=== PATIENT | female | born 1970 | race Caucasian/White ===

== ENCOUNTER 2017-11-14 14:47 | Emergency (ER) | payer SELFPAY ==
[2017-11-14] MEDS ORDERED: Aspirin Low Dose CHEW TAB* 81 MG ONE (14:52)
[2017-11-14] MEDS ORDERED: Aspirin Low Dose CHEW TAB* 81 MG PO ONE (14:55)
[2017-11-14] MEDS ORDERED: Nitroglycerin TAB 0.4 MG* 0.4 MG TAB SL ONE ×2 (14:56→15:00)
[2017-11-14] MEDS ORDERED: NS 0.9% 1000 ML* 1,000 ML IV SCH (15:00)
[2017-11-14] MEDS ORDERED: Lidocaine 1% INJ* 10 MG/ML 30 ML SDV ONE (15:30)
[2017-11-14] MEDS ORDERED: Heparin 2 UNITS/ML IVPREMIX* 2,000 ML IV ONE (15:30)
[2017-11-14] MEDS ORDERED: fentaNYL* 50 MCG/ML 2 ML VIAL (100 MCG VIAL) ONE (15:30)
[2017-11-14] MEDS ORDERED: nitroGLYCERIN DRIP* 25,000 MCG/250 ML BTL ONE (15:30)
--- NOTE | 2017-11-14 16:06 | UC ---
Jesus Manuel Elam Natalie, scribed for Kelvin Louie MD on 11/14/17 at 1601 . Cardiac HPI - HPI Summary HPI Summary: The pt is a 47 y/o F presenting to [facility] c/o chest pain starting a few hours ago. The pt has treated the pain with nothing OPERATIONS SUPPORT REPRESENTATIVE. She has a hx of [place] ten years and has had three stents placed afterwards. She has not been taking any medication for her condition. While in [facility], EKG shows STEMI. - History of Current Complaint Stated Complaint: CHEST PAIN Time Seen by Provider: 11/14/17 14:54 Hx Obtained From: Patient Onset/Duration: Sudden Onset, Lasting Hours - started a few hours ago, Still Present Initial Severity: Moderate Current Severity: Severe Associated Signs & Symptoms: Positive: Chest Pain - Allergy/Home Medications Allergies/Adverse Reactions: Allergies Allergy/AdvReac Type Severity Reaction Status Date / Time No Known Allergies Allergy Verified 11/14/17 15:40 PMH/Surg Hx/FS Hx/Imm Hx Previously Healthy: No Cardiovascular History: Myocardial Infarction Review of Systems Constitutional: Other - negative: fever Cardiovascular: Chest Pain All Other Systems Reviewed And Are Negative: Yes Physical Exam Triage Information Reviewed: Yes Appearance: Ill-Appearing, Pain Distress - mild, Other: - anxious Vital Signs Reviewed: Yes Eyes: Positive: Other: - EOMI, CANDY ENT: Positive: Normal ENT inspection Neck: Positive: Supple, Nontender Respiratory: Positive: Other: - CTA, breath sounds present Cardiovascular: Positive: Tachycardia Abdomen Description: Positive: Nontender, Soft Bowel Sounds: Positive: Present Musculoskeletal Exam: Normal Musculoskeletal: Positive: Strength Intact, ROM Intact Neurological: Positive: Other: - normal, sensory/motor intact, A&O x3 Psychological: Positive: Other: - affect/mood appropriate Skin: Positive: Other - warm, color reflects adequate perfusion, dry Diagnostics - EKG Cardiac Rate: Tachycardia Cardiac Rhythm: Sinus: New - 116 BPM Ectopy: None ST Segment: Non-Specific - ST elevation in anterolateral leads - Assessment/Plan Course Of Treatment: Medications reviewed. Allergies noted. BP noted and advised to follow up with PCP. PATIENT GIVEN ASA 324MG PO, SL NTG AND IV FLUIDS. ED NOTIFIED. PATIENT WENT TO ED BY AMBULANCE. - Clinical Impression Provider Diagnoses: stemi Discharge - Sign-Out/Discharge Documenting (check all that apply): Discharge - Discharge Plan Condition: Guarded Disposition: TRANS HIGHER LVL OF CARE FAC Discharge Disposition Comment: The pt will be transferred to [facility]. Referrals: No Primary Care Phys,NOPCP [Primary Care Provider] - - Billing Disposition and Condition Condition: GUARDED Disposition: EMTALA The documentation as recorded by the Jesus Manuel franco Natalie accurately reflects the service I personally performed and the decisions made by me, Kelvin Louie MD.
== END 2017-11-14 15:10 | disposition short-term general hospital (02) ==
LOC: UCEAST 14:47
DX: I21.3 ST elevation (STEMI) myocardial infarction of unspecified site (principal); I25.2 Old myocardial infarction; Z95.5 Presence of coronary angioplasty implant and graft; R00.0 Tachycardia, unspecified
CPT/HCPCS: 93005; 96360; 99204; A9270-GY; G0463; J1644; J3010

== ENCOUNTER 2017-11-14 15:24 | Inpatient (IN) | payer SELFPAY ==
[2017-11-14] MEDS ORDERED: Midazolam* 1 MG/ML 10 ML VIAL (10 MG) ONE (15:31)
[2017-11-14] MEDS ORDERED: nitroGLYCERIN DRIP* 25,000 MCG/250 ML BTL ONE (15:31)
[2017-11-14] MEDS ORDERED: Iohexol 350 (CONTRAST) 200 ML MDV IV ONE ×2 (15:35→16:20)
[2017-11-14] MEDS ORDERED: Ticagrelor* 90 MG TAB PO ONE (15:37)
[2017-11-14] MEDS ORDERED: Heparin for STEMI(*) 5,000 UNITS/ML 1 ML VIAL IV ONE (15:37)
[2017-11-14] MEDS ORDERED: nitroGLYCERIN DRIP* 25,000 MCG/250 ML BTL IV ONE (15:37)
[2017-11-14 15:57] LABS: ABS Basophils 0 10^3/ul (0-0.2); ABS Eosinophils 0.1 10^3/ul (0-0.6); ABS Lymphocytes 1.9 10^3/ul (1.0-4.8); ABS Monocytes 0.4 10^3/ul (0-0.8); ABS Neutrophils 3.4 10^3/ul (1.5-7.7); ABS Nucleated RBC 0 10^3/ul; Eosinophil % 1.1 % (0-6); Hematocrit 44 % (35-47); Hemoglobin 14.6 g/dl (12.0-16.0); Lymphocyte % 32.9 % (25-47); Mean Corpuscular HGB Conc 34 g/dl (31-36); Mean Corpuscular Hemoglobin 30 pg (27-31); Mean Corpuscular Volume 91 fL (80-97); Mean Platelet Volume 9.5 um3 (7.4-10.4); Nucleated Red Blood Cells % 0.1; Platelet Count 223 10^3/ul (150-450); Red Blood Count 4.82 10^6/ul (4.0-5.4); Red Cell Distribution Width 13 % (10.5-15); White Blood Count 5.7 10^3/ul (3.5-10.8)
[2017-11-14] MEDS ORDERED: Bivalirudin(*) 250 MG VIAL ONE (16:03)
[2017-11-14 16:05] LABS: INR 0.94 (0.77-1.02)
[2017-11-14 16:15] LABS: EGFR Non-African American 74.1 (>60)
[2017-11-14] MEDS ORDERED: Metoprolol Tartrate IV* 1 MG/ML 5 ML VIAL ONE (16:32)
[2017-11-14] MEDS ORDERED: Lisinopril TAB* 5 MG ONE (16:43)
[2017-11-14] MEDS ORDERED: Ondansetron INJ* 2 MG/ML VIAL IV PRN (16:47)
[2017-11-14] MEDS ORDERED: Acetaminophen TAB* 325 MG PO PRN (16:47)
[2017-11-14] MEDS ORDERED: Zolpidem TAB* 5 MG PO PRN (16:47)
[2017-11-14] MEDS ORDERED: Nitroglycerin TAB 0.4 MG* 0.4 MG TAB SL PRN (16:47)
[2017-11-14] MEDS ORDERED: Docusate CAP* 100 MG PO PRN (16:47)
[2017-11-14] MEDS ORDERED: fentaNYL* 50 MCG/ML 2 ML VIAL (100 MCG VIAL) IV PRN (16:47)
[2017-11-14] MEDS ORDERED: oxyCODONE/Acetamin 5/325 MG* TAB PO PRN (16:47)
[2017-11-14] MEDS ORDERED: Captopril TAB* 12.5 MG PO SCH (17:00)
[2017-11-14] MEDS ORDERED: NS 0.9% 1000 ML* 1,000 ML IV SCH (17:00)
[2017-11-14] MEDS ORDERED: Metoprolol Tartrate TAB* 25 MG PO SCH ×2 (17:00→22:00)
[2017-11-14] MEDS: Atorvastatin* 80 MG TAB PO SCH (17:46)
[2017-11-14] MEDS ORDERED: Nicotine GUM* 2 MG PO PRN (19:43)
[2017-11-14] MEDS: LORazepam TAB(*) 0.5 MG PO PRN (20:02)
[2017-11-14] MEDS: Ticagrelor* 90 MG TAB PO SCH (21:59)
--- NOTE | 2017-11-14 23:09 | HP ---
ADMISSION HISTORY AND PHYSICAL: DATE OF ADMISSION: 11/14/17 CHIEF COMPLAINT: The patient presents with severe chest discomfort with EKG suggesting anterior wall ST elevation myocardial infarction. HISTORY OF PRESENT ILLNESS: The patient is a 47-year-old female who states that starting some 2 hours ago, she started having severe back discomfort and chest discomfort. She had diaphoresis with it as well and mild nauseousness. She eventually sought medical attention by going to [facility] where an EKG was done showing ST segment elevation across the precordium and mildly in the inferior leads. A STEMI alert was called. She was transferred from there to [facility] [place]'s Emergency Room. In the emergency room, she received heparin 4000 units, 180 mg of Brilinta after I had seen her. Repeat EKG continued to show ST segment elevation and she was having severe chest discomfort. At that point in time, I explained to her the risks and benefits of cardiac catheterization and attempted intervention. She understood them and wishes to proceed. Of note, the patient states for the past 2 weeks, she has been getting these episodes of chest and back discomfort that have been coming on and lasting anywhere from 15 to 20 minutes at a time. With it, she gets profound sweating and mild nauseousness, but they seem to go away. They were so bad as they were occurring at rest. As best could be obtained from the patient, she had a prior history of 3 stents placed back some 10 years ago at [facility] in [place]. There are no available records at this time. She has a history of hypertension. Denies any diabetes. Denies any history of hyperlipidemia. In general, she does not take any medications and has not taken any medications for quite a while at least 4 years. She states that after having her stents placed, she remembers having been on Plavix, but does not remember being on baby aspirin and clearly has not been on baby aspirin. She continues to smoke half-a-pack a day and has been smoking since she was in her teenage years. FAMILY HISTORY: Noncontributory for early onset coronary artery disease. REVIEW OF SYSTEMS: Pertinent to proceeding to the cardiovascular laboratory. The patient denies any history of hematochezia, hematemesis, or hematuria. She denies any kidney disease. She denies any prior history of stroke or TIA. She denies any allergy to contrast usage. PHYSICAL EXAMINATION GENERAL: When I see her in the emergency room reveals the patient in acute distress. VITAL SIGNS: Revealed a blood pressure of 184/105 with a pulse of 103, respirations were 20, O2 saturation 100% on room air. HEENT: Conjunctivae pink. Sclerae clear. NECK: Supple. There was no obvious increased JVP. Carotid had fair upstroke and volume. LUNGS: Revealed no accessory muscle usage. There was fair excursion. Lungs were relatively clear to A and P. HEART: Revealed no visible heaves, no palpable heaves or thrills. Normal S1, S2 with no significant S3 or S4 gallop. No significant murmur. ABDOMEN: Mildly obese, soft, nontender. EXTREMITIES: Without edema. Peripheral pulses were intact. Femoral pulse without bruit. NEUROLOGIC: The patient is alert and oriented with normal mentation. MUSCULOSKELETAL: The patient was moving all extremities appropriate. PSYCHOLOGICAL: The patient in marked distress appropriately with ongoing STEMI with significant discomfort. DIAGNOSTIC STUDIES/LAB DATA: Electrocardiogram reveals acute ST segment elevation in the precordial leads as well as mildly in the inferior leads. OVERALL ASSESSMENT: Jacquie now presents with an acute ST segment elevation myocardial infarction with already poor R-wave progression in her anterior leads that may have suggested already having had the presence of prior damage to the anterior wall. She has a history of 3 stents in the past and at this point in time, we do not know the nature of them. We will be able to see by fluoroscopy with respect to the stent placement. The risks and benefits of cardiac catheterization were explained to her. She understood them and wished to proceed. She was given 4000 units of heparin, 180 mg of Brilinta as well as IV nitroglycerin drip being started for blood pressure management. Further management will be pursued in the cardiovascular laboratory depending on the results of cardiac catheterization. [id number]/[facility] #: [id number] MARY KAY
[2017-11-14] MEDS: Metoprolol Tartrate TAB* 25 MG PO SCH (23:52)
[2017-11-14] MEDS: Captopril TAB* 12.5 MG PO SCH (23:52)
[2017-11-15] MEDS: Captopril TAB* 12.5 MG PO SCH ×3 (05:35→20:50)
[2017-11-15] MEDS: Metoprolol Tartrate TAB* 25 MG PO SCH ×3 (05:35→20:50)
[2017-11-15 05:59] LABS: ABS Basophils 0.1 10^3/ul (0-0.2); ABS Eosinophils 0.1 10^3/ul (0-0.6); ABS Lymphocytes 1.4 10^3/ul (1.0-4.8); ABS Monocytes 0.6 10^3/ul (0-0.8); ABS Neutrophils 5.9 10^3/ul (1.5-7.7); ABS Nucleated RBC 0 10^3/ul; Eosinophil % 1.8 % (0-6); Hematocrit 38 % (35-47); Hemoglobin 12.8 g/dl (12.0-16.0); Lymphocyte % 17.2 % (25-47); Mean Corpuscular HGB Conc 34 g/dl (31-36); Mean Corpuscular Hemoglobin 31 pg (27-31); Mean Corpuscular Volume 91 fL (80-97); Mean Platelet Volume 9.3 um3 (7.4-10.4); Nucleated Red Blood Cells % 0; Platelet Count 205 10^3/ul (150-450); Red Blood Count 4.18 10^6/ul (4.0-5.4); Red Cell Distribution Width 13 % (10.5-15); White Blood Count 8.1 10^3/ul (3.5-10.8)
[2017-11-15] MEDS ORDERED: Perflutren Lipid Microsphere* 3 ML VIAL ONE (08:16)
[2017-11-15] MEDS: Ticagrelor* 90 MG TAB PO SCH ×2 (08:49→20:50)
[2017-11-15] MEDS: Aspirin 81 mg CHEW TAB* 81 MG TAB.CHEW PO SCH (08:49)
[2017-11-15] MEDS: LORazepam TAB(*) 0.5 MG PO PRN (08:54)
--- NOTE | 2017-11-15 09:48 | ECHO ---
Patient: MINI SOTO [facility] Rec#: [id number] : 1970 Date: 11/15/2017 Age: 47y Height: 168 cm / 66.1 in Weight: 81.8 kg / 180.3 lbs Sex: F BSA: 1.9 Room#: ICU 1 Admit Date#: 11/14/2017 Type: Inpatient Referring: Nam Coker MD Reading: Nam Coker MD Snuff Grinder And Screener: Gabriela Julian RN RDCS Transthoracic Echocardiogram Indication: Anterior wall MO S/P PCI BP: 112/79 HR: 72 Rhythm: NSR Findings History: CAD with stents placed, HTN, smoker Technical Comments: The study is technically limited due to poor apical windows. The study is technically limited due to patient body habitus. The study is technically limited due to the patient's smoking history. Left Ventricle: The left ventricular chamber size is normal. Moderate concentric left ventricular hypertrophy is observed. There is a focal wall motion abnormality present.There is moderate to severe hypokinesis of a small region of the LV involving the apical,apical septal, and most distal portion of the inferior wall. There is normal left ventricular systolic function. The estimated ejection fraction is 60-65%. The assessment of diastolic function is non-diagnostic. Left Atrium: The left atrium is mildly dilated. Right Ventricle: The right ventricular chamber size and systolic function are within normal limits. The right ventricle wall thickness is mildly increased. Right Atrium: The right atrial cavity size is normal. Aortic Valve: The aortic valve is trileaflet. The aortic valve leaflets are mildly thickened. There is no evidence of aortic regurgitation. There is no evidence of aortic stenosis. Mitral Valve: The mitral valve leaflets are mildly thickened. There is mild mitral regurgitation. There is no evidence of mitral stenosis. Tricuspid Valve: The tricuspid valve leaflets are normal. There is trace tricuspid regurgitation. Unable to estimate the right ventricular systolic pressure. There is no tricuspid stenosis. Pulmonic Valve: The pulmonic valve appears normal. There is a trace pulmonic regurgitation. There is no pulmonic stenosis. Pericardium: There is no significant pericardial effusion. A pericardial fat pad is visualized. Aorta: There is no dilatation of the ascending aorta. There is no dilatation of the aortic arch. There is no dilation of the aortic root. Pulmonary Artery: The main pulmonary artery appears normal. Venous: The inferior vena cava appears normal in size. There is a greater than 50% respiratory change in the inferior vena cava dimension. Contrast: Definity was used to optimize study. A total of 5 ml of diluted Definity was given IV. Conclusions Moderate concentric left ventricular hypertrophy is observed. There is a focal wall motion abnormality present, as described above. There is normal left ventricular systolic function. The estimated ejection fraction is 60-65%. There is mild mitral regurgitation. There is trace tricuspid regurgitation. Unable to estimate the right ventricular systolic pressure. There is a trace pulmonic regurgitation. No reports of prior studies are offered for comparison. Measurements Name Value Normal Range RVIDd (AP) MM 0.65 cm - Name Value Normal Range RVDdMajor (2D) 3.2 cm (2.2 - 4.4) RVAW (2D) 0.9 cm (0.2 - 0.5) RAd ISD 4CH 4.4 cm (3.4 - 4.9) RA (A4C)W 3.5 cm (2.9 - 4.6) IVSd (2D) 1.5 cm (0.6 - 1) LVPWd (2D) 1.5 cm (0.6 - 1) LVIDd (2D) 4.5 cm (3.6 - 5.4) LVIDs (2D) 3 cm - LV FS (2D) 33 % (25 - 45) Aortic Annulus 2 cm (1.4 - 2.6) Ao root diameter (2D) 2.8 cm (2.1 - 3.5) Ascending Ao 3.4 cm (2.1 - 3.4) Aortic arch 2.4 cm (1.8 - 3.4) LA dimension (AP) 2D 3.4 cm (2.3 - 3.8) LAd ISD 4CH 5.4 cm (2.9 - 5.3) LA ISD 4CH W 4.5 cm (2.5 - 4.5) Name Value Normal Range LA ESV SP 4CH (A/L) 75 ml - LA ESV SP 2CH (A/L) 63 ml - LA ESV BP (A/L) 70 ml - LA ESV BP (A/L) index 36.4 ml/m2 - LA ESV SP 4CH (MOD) 71 ml - LA ESV SP 2CH (MOD) 61 ml - Name Value Normal Range MV E-wave Vmax 0.72 m/sec - MV deceleration time 240 msec - MV A-wave Vmax 1 m/sec - MV E:A ratio 0.7 ratio - LV septal e' Vmax 0.06 m/sec - LV lateral e' Vmax 0.06 m/sec - LV E:e' septal ratio 12 ratio - LV E:e' lateral ratio 12 ratio - Name Value Normal Range AV Vmax 1.5 m/sec - AV VTI 33.7 cm - AV peak gradient 9.5 mmHg - AV mean gradient 5.5 mmHg - LVOT Vmax 1.1 m/sec - LVOT VTI 23.2 cm - LVOT peak gradient 4.6 mmHg - LVOT mean gradient 2.5 mmHg - VALENTÍN Vmax 0.67 m/sec - Name Value Normal Range IVC diameter 2.1 cm - Name Value Normal Range PV Vmax 0.65 m/sec - PV peak gradient 1.69 mmHg -
[2017-11-15] MEDS: Atorvastatin* 80 MG TAB PO SCH (17:05)
[2017-11-16 05:50] LABS: EGFR Non-African American 95.2 (>60)
[2017-11-16] MEDS: Ticagrelor* 90 MG TAB PO SCH ×2 (07:40→21:40)
[2017-11-16] MEDS: Aspirin 81 mg CHEW TAB* 81 MG TAB.CHEW PO SCH (07:40)
[2017-11-16] MEDS ORDERED: Lisinopril TAB* 5 MG PO SCH (09:00)
[2017-11-16] MEDS ORDERED: Metoprolol Tartrate TAB* 50 mg PO SCH (09:00)
--- NOTE | 2017-11-16 10:32 | CATH ---
CARDIAC CATHETERIZATION AND INTERVENTIONAL REPORT: DATE OF PROCEDURE: 11/14/17. INDICATION FOR THE PROCEDURE: The patient presents with an ST segment elevation anterior wall myocardial infarction. PROCEDURE: Coronary arteriography, left heart catheterization, left ventriculography, primary stenting of the proximal to ostial left anterior descending artery utilizing a 3.0 x 16 mm long Synergy drug-eluting stent post- dilated to high pressure utilizing a 3.0 x 8 mm long NC Emerge balloon, achieving 3.2 mm. DESCRIPTION OF PROCEDURE: The patient was interviewed and examined in the emergency room where the risks and benefits were explained. She understood them and wished to proceed. She was brought to the cardiovascular laboratory and a formal time-out was performed. EQUIPMENT UTILIZED: 1. Femoral artery sheath - 6.5-Kenyan Merit sheath. 2. Diagnostic catheters - a 5-Kenyan FR4 curve and a 5-Kenyan FL3.5 curve catheter. 3. Guiding catheter - a 6-Kenyan left BU3 curve. 4. Interventional wire - BMW 190 cm length wire. 5. Drug-eluting stent - a Synergy 3.0 x 16 mm long JUAN R. 6. Post-deployment balloon inflations - a 3.0 x 8 mm long NC Emerge balloon. 7. Left heart catheterization catheter - 5-Kenyan angled pigtail catheter. MEDICATIONS GIVEN: 1. In the emergency room - heparin 4000 units, Brilinta 180 mg, aspirin 324. 2. In Tissue Coordinator - Versed, nitroglycerin drip and intracoronary Nitro, Angiomax bolus and an Angiomax drip, and Lopressor 2.5 mg IV. PROCEDURE: The patient was prepped and draped in sterile fashion. Right groin area was anesthetized with 1% lidocaine. Right femoral artery was cannulated and a sheath was placed. Diagnostic views were obtained and a decision was made to intervene into the left coronary artery. ACT was checked and found to be subtherapeutic, and Angiomax bolus and Angiomax drip were started. Guiding views were obtained using the 6-Kenyan left BU3 curved catheter. The BMW wire was advanced down the left anterior descending artery. Multiple attempts were made throughout the course of the study to negotiate distally through the total occlusion in the small caliber vessel. This was unsuccessful. Of note, the ostial to proximal LAD was primary stented utilizing the 3.0 x 16 mm long Synergy drug- eluting stent with post deployment inflations made to high pressure utilizing the NC Emerge balloon. The artery was assessed. Left heart catheterization and left ventriculography were performed utilizing a total of 20 mL of Omnipaque dye at a rate of 10 mL/second. An injection was made into the right femoral sheath to assess the eligibility to utilize the closure device, and it was found to be acceptable for this; and, as such, a 6/7- Kenyan mixed closure device was deployed with good hemostasis. RESULTS: HEMODYNAMIC DATA: Left heart catheterization - central aortic pressure was recorded at 171/92 with a mean of 127. Left ventricular pressure 169 over left ventricular end diastolic pressure of 15. LEFT VENTRICULOGRAPHY: Performed in the CORBETT projection revealed overall normal left ventricular systolic function with an EF of 55%. The apical region was dyskinetic. CORONARY ARTERIOGRAPHY: A. Left coronary artery. 1. Left main - widely patent. 2. Left anterior descending artery - the left anterior descending artery had haziness in the proximal portion just prior to and into the first stent. In certain views, it almost appeared to have a slight dissection appearance to it. The degree of luminal reduction appeared to be approximately 75%. The mid LAD had a 35% to 40% narrowing, and the distal-most area of the LAD was totally occluded. There was a question delayed imaging of faint imaging, perhaps from collateral flow, but was not well visualized. 3. Circumflex artery - a non-dominant vessel supplying a high first obtuse marginal branch followed by what appeared to be two thread-like second and third obtuse marginal branches. Of note - there was retrograde filling that seemed to head back toward the third thread-like obtuse marginal branch that may have suggested a mid area of occlusion in an extremely small caliber vessel. The circumflex ended in a bifurcating large-sized obtuse marginal branch. Mild disease was noted in this vessel of a maximum of 20%. B. Right coronary artery - a dominant vessel supplying the PDA multiple posterior left ventricular branches. There was a 20% proximal, followed by a 45 % to 50% mid lesion in the right coronary artery as it turned onto the inferior surface of the heart. INTERVENTION INTO PROXIMAL LAD. Successful reduction of hazy 75% obstruction with possible dissection with less than 10% residual stenosis TIMI3 flow, no dissection seen. Attempts to probe the distal LAD cautiously with the guidewire were unsuccessful, suggesting the possibility of a chronic total occlusion of the distal vessel. OVERALL ASSESSMENT: Significant disease involving the proximal to ostial LAD and distal LAD as mentioned. The proximal LAD successfully intervened on the distal LAD seemed to suggest the presence of a chronic total occlusion. At this point in time, medical management will be pursued. Cardiac enzymes will be cycled to see the exact nature of the amount of damage. Mild to moderate disease in the right coronary artery should be assessed at a later date for possibility of hemodynamic significance, perhaps by exercise stress test after discharge. Aggressive risk factor management given the fact that the patient has been on no medications at all with a history of prior stent will be pursued, including dual antiplatelet therapy, in addition to lipid lowering agents and blood pressure control. Smoking cessation is paramount to her well-being from a cardiac standpoint. [id number]/[facility] #: [id number] MARY KAY
[2017-11-16] MEDS ORDERED: Lisinopril TAB* 5 MG PO ONE ×2 (13:25→21:00)
[2017-11-16] MEDS: Metoprolol Tartrate TAB* 50 mg PO SCH ×2 (13:29→21:39)
[2017-11-16] MEDS: Atorvastatin* 80 MG TAB PO SCH (17:00)
[2017-11-17] MEDS: Metoprolol Tartrate TAB* 50 mg PO SCH (05:54)
[2017-11-17 06:53] LABS: EGFR Non-African American 86.1 (>60)
[2017-11-17] MEDS ORDERED: Metoprolol Tartrate TAB* 50 mg PO ONE (07:38)
[2017-11-17] MEDS ORDERED: Lisinopril TAB* 5 MG PO SCH (09:00)
[2017-11-17] MEDS: Ticagrelor* 90 MG TAB PO SCH (09:17)
[2017-11-17] MEDS: Aspirin 81 mg CHEW TAB* 81 MG TAB.CHEW PO SCH (09:17)
[2017-11-17 12:35] VITALS: BP 177/95
[2017-11-17] MEDS: LORazepam TAB(*) 0.5 MG PO PRN (12:41)
[2017-11-17] MEDS ORDERED: CMCS: Lovastatin (NF) 10 MG TAB PO SCH (17:00)
[2017-11-17] MEDS ORDERED: Metoprolol Tartrate TAB* 100 MG TAB PO SCH (20:00)
--- NOTE | 2017-11-18 07:38 | DS ---
DISCHARGE SUMMARY: DATE OF ADMISSION: 11/14/17 DATE OF DISCHARGE: 11/17/17 FINAL DIAGNOSES: Acute ST-segment elevation and anterior wall myocardial infarction. SECONDARY DIAGNOSES: 1. History of coronary artery disease. 2. Essential hypertension. 3. Hyperlipidemia. DISCHARGE MEDICATIONS: 1. Aspirin 81 mg a day. 2. Lisinopril 10 mg working up to b.i.d. 3. Lovastatin 40 mg once a day. 4. Metoprolol tartrate 100 mg twice a day. 5. Nitroglycerin sublingual 0.4 mg as needed. 6. Ticagrelor 90 mg twice a day. HOSPITAL COURSE: The patient is a pleasant 47-year-old female who presented to [facility] in the throes of an acute ST segment elevation anterior wall myocardial infarction. Please refer to the admission history and physical for complete details. She had had a prior history of stent place d some 10 years ago at [facility]. She was brought to the cardiovascular laboratory em ergently on the day of admission and found to have a hazy ostial/proximal LAD narrowing followed by a total occlusion of the distal LAD. The distal LAD was probed, but not able to be crossed suggesting a chronic occlusion of this vessel. The proximal ostial lesion was stented utilizing a 3.0 x 16 mm l abdon Synergy drug- eluting stent post-dilated to 3.2 mm with high pressure balloon inflation. The mid LAD had a 35-40% narrowing and the distal LAD was totally occluded as mentioned. The right coronary artery had moderate disease with a 45-50% mid lesion as it turned on to the inferior surface of the h eart and the circumflex had a very thin first and second obtuse marginal branch with a question of re trograde filling of the thin obtuse marginal branch. Left ventricular systolic function revealed an overall EF of 55% with apical dyskinesis. Over the course of the hospitalization, the patient's cardiac enzymes peaked at a troponin of 2.09, t otal CPK was only 90. Her EKG over the course of time developed significant T wave inversions noted in V2 through V6. Of note, there was mild ST elevation initially seen in III and aVF that had minima l if any ST segment elevation noted and an aVF with biphasic T waves in both leads. She had T wave i nversion also seen in lead II. Echocardiogram was performed on 11/15/17 and revealed a normal ejection fraction of 60-65% with an ar ea of moderate to severe hypokinesis to a small region of the apical, apical septal and most distal p ortion in the inferior wall. She had mild mitral regurgitation and trace tricuspid regurgitation. O gonzález the course of the hospitalization, she worked with the supportive employment case manager to work on trying to get insu thanh as she currently had no insurance. Hopefully within the next two weeks of discharge, she will have insurance. Her medications were adjusted for generics and were able to be obtained at [employer] or $4 for one month supply. For the Brilinta, she was given free samples for at least a month. PHYSICAL EXAMINATION: On the day of discharge, vital signs revealed a blood pressure still mildly el evated at times in the 140s to 160s range, pulse was regular at 60s to 70s, respirations 16, O2 satur ation 99% on room air. Neck: Supple. There was no increased JVP. Carotid with fair upstroke and vo lume without definitive bruits. Conjunctivae were pink. Sclerae clear. Lungs: Revealed no accesso ry muscle usage. There was no active rales, rhonchi, or wheezes. Heart: Revealed no visible heaves. No palpable heaves or thrills. Normal S1 and S2, question of an S4 gallop. No significant systoli c or diastolic murmur. Abdomen: Obese, soft and nontender. Extremities: Without edema. The right femoral artery site was well healed. Neuro: The patient was alert and oriented with normal mentatio n. Musculoskeletal: The patient with normal gait. Psychiatric: The patient at times seems a littl e bit anxious. LABORATORY DATA: Laboratory results on the day of discharge revealed sodium 137, potassium 4.0, chlo ride 106, bicarb 22, BUN and creatinine of 14 and 0.7. Her last hemoglobin and hematocrit was from 11/15/17, which were 12.8 and 38 with a platelet count of 205,000. FOLLOWUP: The patient was given her cardiac education booklet and a stent card as well as an appoint ment to see me within the next 10 to 14 days post discharge. [id number]/[facility] #: [id number]
== END 2017-11-17 13:51 | disposition home or self-care (01) | DRG 247 ==
LOC: ED 15:24 → CHICATH 15:34 → ICU 16:47 → MEDTELE 11-16 15:50
PROVIDERS: ADMIT Internal Medicine Cardiovascular Disease; ATTEND Internal Medicine Cardiovascular Disease
PROC: B2111ZZ Fluoroscopy of Multiple Coronary Arteries using Low Osmolar Contrast (ICD-10-PCS; 2017-11-14)
PROC: B2151ZZ Fluoroscopy of Left Heart using Low Osmolar Contrast (ICD-10-PCS; 2017-11-14)
PROC: 4A023N7 Measurement of Cardiac Sampling and Pressure, Left Heart, Percutaneous Approach (ICD-10-PCS; 2017-11-14)
PROC: 027034Z Dilation of Coronary Artery, One Artery with Drug-eluting Intraluminal Device, Percutaneous Approach (ICD-10-PCS; principal; 2017-11-14 15:00)
DX: I21.09 ST elevation (STEMI) myocardial infarction involving other coronary artery of anterior wall (principal); I10 Essential (primary) hypertension; I25.10 Atherosclerotic heart disease of native coronary artery without angina pectoris; E78.5 Hyperlipidemia, unspecified; I08.1 Rheumatic disorders of both mitral and tricuspid valves; F17.210 Nicotine dependence, cigarettes, uncomplicated; Z79.82 Long term (current) use of aspirin; Z79.02 Long term (current) use of antithrombotics/antiplatelets; Z95.5 Presence of coronary angioplasty implant and graft; I25.2 Old myocardial infarction
CPT/HCPCS: 36415; 80048; 80053; 80061; 82550; 82553; 83605; 83721; 83874; 83880; 84484; 85025; 85610; 85730; 86850; 86900; 86901; 87641; 93005; 93306; 99156; 99157; 99285; A9270-GY; C1725; C1769; C1876; C1887; C8929; C9606-LD; J0583; J2250; J3490

== ENCOUNTER 2018-12-09 14:39 | Inpatient (IN) | payer OTHER ==
[2018-12-09] MEDS ORDERED: Heparin for STEMI(*) 5,000 UNITS/ML 1 ML VIAL IV ONE (15:02)
[2018-12-09] MEDS ORDERED: Aspirin 81 mg CHEW TAB* 81 MG TAB.CHEW PO ONE (15:02)
[2018-12-09] MEDS ORDERED: Ticagrelor* 90 MG TAB PO ONE ×2 (15:02→15:04)
[2018-12-09] MEDS ORDERED: Aspirin 81 mg CHEW TAB* 81 MG TAB.CHEW ONE (15:04)
[2018-12-09] MEDS ORDERED: Heparin VIAL(*) 5000 UNITS/ML VIAL (FIVE THOUSAND) ONE (15:04)
--- NOTE | 2018-12-09 15:08 | ED ---
HPI Chest Pain - HPI Summary HPI Summary: Pt is a 48 y/o F presenting to the ED with a chief complaint of chest pain in the L anterior chest onset bout 1430. The pain radiates to her back, and she reports associated SOB and tingling down L arm. She took 2 NTG with no relief, and has hx of [place] 1yr ago and is a smoker. She has been out of her Brilinta for one week, and did not take her aspirin this morning. - History of Current Complaint Chief Complaint: EDChestPainROMI Time Seen by Provider: 12/09/18 14:54 Hx Obtained From: Patient Onset/Duration: Started Hours Ago, Still Present Timing: Constant, Lasting Hours Initial Severity: Moderate Current Severity: Moderate Pain Intensity: 5 Pain Scale Used: 0-10 Numeric Chest Pain Location: Left Anterior Chest Pain Radiates: Yes Chest Pain Radiates To:: Back, Arm Character: Pressure/Squeezing Aggravating Factor(s): Nothing Alleviating Factor(s): NTG 123 - 2 Associated Signs and Symptoms: Positive: Chest Pain, Numbness, Tingling, Shortness of Breath, Back Pain - Additional Pertinent History Primary Care Physician: [id number] - Allergy/Home Medications Allergies/Adverse Reactions: Allergies Allergy/AdvReac Type Severity Reaction Status Date / Time No Known Allergies Allergy Verified 12/09/18 14:45 PMH/Surg Hx/FS Hx/Imm Hx Previously Healthy: No Endocrine/Hematology History: Denies: Hx Diabetes Cardiovascular History: Reports: Hx Myocardial Infarction - 10 years ago Musculoskeletal History: Reports: Hx Arthritis Sensory History: Reports: Hx Contacts or Glasses - reading Denies: Hx Hearing Aid Opthamlomology History: Reports: Hx Contacts or Glasses - reading Infectious Disease History: No Infectious Disease History: Denies: Traveled Outside the [place] in Last 30 Days - Family History Known Family History: Positive: Diabetes - Social History Alcohol Use: Occasionally Hx Substance Use: Yes Substance Use Type: Reports: Marijuana Hx Tobacco Use: Yes Smoking Status (MU): Current Every Day Smoker Review of Systems Positive: Chest Pain Positive: Shortness Of Breath Positive: Paresthesia, Numbness All Other Systems Reviewed And Are Negative: Yes Physical Exam - Summary Physical Exam Summary: Appearance: The patient is well-nourished in no acute distress and in no acute pain. Skin: The skin is warm and dry and skin color reflects adequate perfusion. HEENT: The head is normocephalic and atraumatic. The pupils are equal and reactive. The conjunctivae are clear and without drainage. Nares are patent and without drainage. Mouth reveals moist mucous membranes and the throat is without erythema and exudate. The external ears are intact. The ear canals are patent and without drainage. The tympanic membranes are intact. Neck: The neck is supple with full range of motion and non-tender. There are no carotid bruits. There is no neck vein distension. Respiratory: Chest is non-tender. Lungs are clear to auscultation and breath sounds are symmetrical and equal. Cardiovascular: Heart is regular rate and rhythm. There is no murmur or rub auscultated. There is no peripheral edema and pulses are symmetrical and equal. Abdomen: The abdomen is soft and non-tender. There are normal bowel sounds heard in all four quadrants and there is no organomegaly palpated. Musculoskeletal: There is no back tenderness noted. Extremities are non-tender with full range of motion. There is good capillary refill. There is no peripheral edema or calf tenderness elicited. Neurological: Patient is alert and oriented to person, place and time. The patient has symmetrical motor strength in all four extremities. Cranial nerves are grossly intact. Deep tendon reflexes are symmetrical and equal in all four extremities. Psychiatric: The patient has an appropriate affect and does not exhibit any anxiety or depression. Triage Information Reviewed: Yes Vital Signs On Initial Exam: Initial Vitals Temp Pulse Resp BP Pulse Ox 98.7 F 98 16 172/118 100 12/09/18 14:43 12/09/18 14:43 12/09/18 14:43 12/09/18 14:43 12/09/18 14:43 Vital Signs Reviewed: Yes Diagnostics - Vital Signs Vital Signs Temp Pulse Resp BP Pulse Ox 12/09/18 14:43 98.7 F 98 16 172/118 100 - Laboratory Result Diagrams: 12/09/18 15:05 12/09/18 15:05 Lab Statement: Any lab studies that have been ordered have been reviewed, and results considered in the medical decision making process. - EKG 1452 Cardiac Rate: NL - 87bpm EKG Rhythm: Sinus Rhythm ST Segment: Normal Ectopy: None Summary of EKG Findings: Acute STEMI. Chest Pain Course/Dx - Course Course Of Treatment: Ms. Melonie presented complaining of chest pain for several hours today. She had an EKG in the sub-waiting room which was brought to me. EKG showed an anterior STEMI. In comparison to previous EKGs was similar to her EKG from a year ago when she came in with an anterior STEMI. At that time she was taken to the [facility] by Dr. Ridley and found to have a proximal and a distal LAD lesion. He was able to stent the proximal lesion but unable to stent the distal lesion and recommended medical treatment. Because of the circumstances and the fact that Dr. Dunaway had just walked out of the department, I paged him and reviewed the case with him prior to calling a STEMI. He agreed with holding off family consumer science fcs teacher and the STEMI and came immediately to the emergency department to evaluate the patient. He did take her to the [facility] immediately after evaluating her. - Diagnoses Provider Diagnoses: STEMI (ST elevation myocardial infarction) During the Visit The Following Alert/Code Occurred: STEMI - Critical Care Time Critical Care Time: 30-74 min Discharge - Sign-Out/Discharge Documenting (check all that apply): Patient Departure Patient Received Moderate/Deep Sedation with Procedure: No - Discharge Plan Condition: Good Disposition: ADMITTED TO [facility] - Billing Disposition and Condition Condition: GOOD Disposition: Admitted to [facility] - Attestation Statements Document Initiated by Norris: Yes Documenting Scribe: Samantha Richard Provider For Whom Norris is Documenting (Include Credential): Yeyo Servin MD. Scribe Attestation: Samantha Elam, scribed for Yeyo Servin MD. on 12/09/18 at 1844. Scribe Documentation Reviewed: Yes Provider Attestation: The documentation as recorded by the scribe, Samantha Richard accurately reflects the service I personally performed and the decisions made by me, Yeyo Servin MD. Status of Scribe Document: Viewed Consult Consult: 1510 - Dr. Dunaway is in the ED to further evaluate the pt.
[2018-12-09 15:13] LABS: ABS Basophils 0.1 10^3/ul (0-0.2); ABS Eosinophils 0.2 10^3/ul (0-0.6); ABS Lymphocytes 2.4 10^3/ul (1.0-4.8); ABS Monocytes 0.4 10^3/ul (0-0.8); ABS Neutrophils 4.7 10^3/ul (1.5-7.7); ABS Nucleated RBC 0 10^3/ul; Eosinophil % 2.3 %; Hematocrit 42 % (33-41); Hemoglobin 13.9 g/dL (12.0-16.0); Lymphocyte % 30.8 %; Mean Corpuscular HGB Conc 33 g/dL (31-36); Mean Corpuscular Hemoglobin 30 pg (27-31); Mean Corpuscular Volume 89 fL (80-97); Mean Platelet Volume 9.4 fL (7.4-10.4); Nucleated Red Blood Cells % 0.1; Platelet Count 215 10^3/uL (150-450); Red Blood Count 4.68 10^6 /uL (3.70-4.87); Red Cell Distribution Width 14 % (10.5-15); White Blood Count 7.8 10^3/uL (3.5-10.8)
[2018-12-09 15:24] LABS: Activated Partial Thrombo Time 27.3 seconds (26.0-36.3); INR 0.94 (0.77-1.02)
[2018-12-09 15:31] LABS: Albumin 4.1 g/dL (3.2-5.2); Albumin/Globulin Ratio 1.4 (1-3); BUN/Creatinine Ratio 19.5 (8-20); Calcium 9.5 mg/dL (8.6-10.3); EGFR African American 55.9 (>60); EGFR Non-African American 46.2 (>60); Potassium 3.4 mmol/L (3.5-5.0); Total Bilirubin 0.3 mg/dL (0.2-1.0); Total Protein 7.1 g/dL (6.4-8.9)
[2018-12-09] MEDS ORDERED: Heparin 2 UNITS/ML IVPREMIX* 3,000 UNIT/1,500 ML BAG IV ONE (15:34)
[2018-12-09] MEDS ORDERED: Lidocaine 1% INJ* 10 MG/ML 30 ML SDV ONE (15:34)
[2018-12-09] MEDS ORDERED: fentaNYL* 50 MCG/ML 2 ML VIAL (100 MCG VIAL) ONE ×2 (15:34→16:11)
[2018-12-09] MEDS ORDERED: Midazolam* 1 MG/ML 5 ML VIAL (5 MG) ONE (15:34)
[2018-12-09 15:36] LABS: CKMB ng/mL 0.8 ng/mL (0.6-6.3)
[2018-12-09] MEDS ORDERED: Iodixanol 320 (CONTRAST) 100 ML SDV ONE (15:37)
[2018-12-09] MEDS ORDERED: nitroGLYCERIN DRIP* 25,000 MCG/250 ML BTL ONE (15:39)
[2018-12-09] MEDS ORDERED: KCL 10 MEQ/50 ML IVPREMIX* 10 MEQ/50 ML BAG ONE (15:39)
[2018-12-09] MEDS ORDERED: Heparin(*) 1000 UNIT/ML 10 ML VIAL CATH LAB IV ONE (16:51)
[2018-12-09] MEDS ORDERED: Ondansetron INJ* 2 MG/ML VIAL IV PRN (17:27)
[2018-12-09] MEDS ORDERED: Nitroglycerin TAB 0.4 MG* 0.4 MG TAB SL PRN (17:27)
[2018-12-09] MEDS ORDERED: NS 0.9% 1000 ML** 1,000 ML IV SCH (17:30)
[2018-12-09] MEDS: Metoprolol Tartrate TAB* 25 MG PO SCH (17:48)
[2018-12-09 18:10] LABS: Creatine Kinase 33 U/L (10-223)
[2018-12-09 18:17] LABS: CKMB ng/mL 1.9 ng/mL (0.6-6.3); Troponin I 0.11 ng/mL (<0.04)
[2018-12-09 19:27] LABS: HDL Cholesterol 47.4 mg/dL
[2018-12-09] MEDS: Acetaminophen TAB* 325 MG PO PRN (19:27)
[2018-12-09] MEDS: Ticagrelor* 90 MG TAB PO SCH (20:40)
[2018-12-09] MEDS: Lisinopril TAB* 10 MG PO SCH (20:40)
--- NOTE | 2018-12-09 20:46 | HP ---
CC: Dr. Campbell HISTORY AND PHYSICAL: DATE OF ADMISSION: 12/09/18 [employer] [place] MATE: Dr. Campbell. PRIMARY CARE PHYSICIAN: None. HISTORY OF PRESENT ILLNESS: A 48-year-old woman with previous coronary artery stenting presenting to the ER with acute anterior wall ST-elevation infarct. She had prior stent placement in [place] a number of years ago, we have no records. She tells me s he then had what sounds like restenosis and had another stent placed. She then presented here last y ear with an anterior wall ST-elevation infarct with a small troponin peak at 2.09. Cardiac cath by Violet Coker revealed haziness in the proximal portion of the LAD prior to and into the first stent. Th e circumflex had no significant stenosis, the apical LAD had a high-grade stenosis and occlusion. Th e right coronary had 40% mid stenosis. The LAD proximally was stented with a 3 x 16 drug-eluting harish nt post dilated with a 3 x 8 NC balloon. Postprocedure EKG revealed minimal ST elevation residual inf eriorly and in the precordium with deep precordial T-wave inversion consistent with her recent infarc t. LVEF by echo on 11/15/17 reported EF of 60% to 65% with hypokinesis of a small area of the apex. Repeat echo 01/05/18 revealed normal LV systolic function with akinesis of the apex. She has had issues with paying for Brilinta as well as her LEROY inhibitor and lisinopril. She failed to schedule a followup appointment a month or so ago with Dr. Campbell. A week ago, she ran out of all her medicines, but continued with aspirin. Today, she forgot to take to her aspirin and subsequentl y developed again severe chest pain reminiscent of her previous infarct. EKG in the ER at 1452 hours revealed sinus rhythm, with injury current from V2 through V6 as well as in 2, 3, and aVF with possi dwight a small inferior Q-wave in aVF. She was given nitroglycerin, aspirin, loading dose of Brilinta, and brought to the lab systems analyst. PAST MEDICAL HISTORY: Hypertension, hyperlipidemia, prior coronary stenting as above. PREHOSPITAL MEDICATIONS: She reports: 1. Lisinopril 40 mg daily. 2. Aspirin 81 mg daily. 3. Lipitor unknown milligrams daily, she has not been using it. 4. Nitroglycerin p.r.n. 5. Lopressor 100 b.i.d. 6. Brilinta 90 b.i.d. She stopped her medications as above. FAMILY HISTORY: Positive for premature coronary artery disease. REVIEW OF SYSTEMS: MACHINE ASSEMBLER: No history of TIA or CVA. She does have a history of occasional visual dominick selena. GI: No peptic ulcer disease or bleeding. Heme: No history of malignancy or anemia. Circu latory: She denies claudication. Pulmonary: She denies cough, hemoptysis, shortness of breath or wh eezing. Remainder all negative. PHYSICAL EXAM: VITAL SIGNS: BP in the ER 181/111, heart rate 86 sinus rhythm, she was afebrile. HEENT: Normal without xanthelasma, scleral injection or jaundice. EOMs normal, cranial nerves gross ly intact. NECK: JVP and carotids were normal. No bruit. Normal upstroke. Trachea midline. No thyromegaly. LUNGS: Without rales or wheezes. CARDIAC: [place] and RV not palpable, normal heart sounds. No gallop, murmur, or rub. ABDOMEN: Soft, nontender. No bruit. Aorta and liver not palpable. Femoral pulses palpable 2+ no b ruits. EXTREMITIES: Radial and pedal pulses palpable. No cyanosis, clubbing, or edema. PSYCH: She is oriented and appropriate. SKIN: Warm and perfused. DIAGNOSTIC STUDIES/LAB DATA: Potassium low at 3.4 with creatinine today of 1.23, a year ago she was 0.98. Her random blood sugar is 105. I note a BNP of 260 in December of this year. Her first troponin w as 0 with a second of 0.11. Her LDL is 92. IMPRESSION: 1. Acute anterior wall ST-elevation infarct. She continues to smoke, has not been compliant with he r medical regimen in part because of an inability to pay for meds. 2. Hypertension, currently uncontrolled, has not been on her meds for a week. 3. Hyperlipidemia. I will restart her high-dose potent statin. 4. Tobacco use. We will discuss at length smoking cessation as part of the secondary prevention pro gram. [id number]/[facility] #: [id number]
[2018-12-09 23:36] LABS: Creatine Kinase 42 U/L (10-223)
[2018-12-09 23:42] LABS: CKMB ng/mL 4.3 ng/mL (0.6-6.3); Troponin I 0.43 ng/mL (<0.04)
[2018-12-09] MEDS ORDERED: oxyCODONE/Acetamin 5/325 MG* TAB PO PRN (23:55)
[2018-12-10] MEDS: Metoprolol Tartrate TAB* 25 MG PO SCH ×3 (02:52→18:04)
[2018-12-10 04:48] LABS: Anion Gap 6 mmol/L (2-11); BUN/Creatinine Ratio 30.6 (8-20); Blood Urea Nitrogen 22 mg/dL (6-24); CO2 Carbon Dioxide 23 mmol/L (22-32); Calcium 8.5 mg/dL (8.6-10.3); Chloride 111 mmol/L (101-111); Creatine Kinase 42 U/L (10-223); EGFR African American 103.7 (>60); EGFR Non-African American 85.7 (>60); Glucose 98 mg/dL (70-100); Sodium 140 mmol/L (135-145)
[2018-12-10 04:54] LABS: CKMB ng/mL 4.6 ng/mL (0.6-6.3)
[2018-12-10 04:55] LABS: Troponin I 0.43 ng/mL (<0.04)
[2018-12-10] MEDS: Acetaminophen TAB* 325 MG PO PRN (05:16)
[2018-12-10] MEDS: Ticagrelor* 90 MG TAB PO SCH ×2 (09:07→20:10)
[2018-12-10] MEDS: Aspirin 81 mg CHEW TAB* 81 MG TAB.CHEW PO SCH (09:07)
[2018-12-10] MEDS: Lisinopril TAB* 10 MG PO SCH ×2 (09:07→20:10)
[2018-12-10 14:01] LABS: Troponin I 0.31 ng/mL (<0.04)
[2018-12-10] MEDS ORDERED: Atorvastatin* 80 MG TAB PO SCH (17:00)
[2018-12-11 07:09] LABS: BUN/Creatinine Ratio 20.9 (8-20); Calcium 8.7 mg/dL (8.6-10.3); EGFR African American 112.7 (>60); EGFR Non-African American 93.2 (>60); Potassium 3.9 mmol/L (3.5-5.0)
--- NOTE | 2018-12-11 08:18 | ECHO ---
Patient: MINI SOTO [facility] Rec#: [id number] : 1970 Date: 12/11/2018 Age: 48y Height: 168 cm / 66.1 in Weight: 82 kg / 180.7 lbs Sex: F BSA: 1.92 Room#: [facility] Admit Date#: 12/09/2018 Type: Inpatient Referring: KIRSTEN Reading: Alexandro Campbell DO Sewing [employer]bin Winder: Nancy Knox RDCS CC: Alexandro Campbell DO Transthoracic Echocardiogram Indication: Myocardial Infarction BP: 150/94 HR: 69 Rhythm: NSR Findings History: CAD w/ PCI, HTN, HLD, Acute anterior STEMI 12/09/18. Technical Comments: The study quality is fair. Completed at 0805. Left Ventricle: The left ventricular chamber size is normal. Mild to moderate concentric left ventricular hypertrophy is observed. There is a focal wall motion abnormality present. There is normal left ventricular systolic function. The estimated ejection fraction is 60-65%. Abnormal left ventricular diastolic function is observed. The apical septal, apical anterior, and apical inferior wall segments are hypokinetic (score 2). Overall wallmotion score index is 2.00 Left Atrium: The left atrium is mildly dilated. Right Ventricle: The right ventricular chamber size and systolic function are within normal limits. Right Atrium: The right atrial cavity size is normal. Aortic Valve: The aortic valve is trileaflet. The aortic valve leaflets are mildly thickened. There is no evidence of aortic regurgitation. There is no evidence of aortic stenosis. Mitral Valve: The mitral valve leaflets are mildly thickened. There is a trace of mitral regurgitation. There is no evidence of mitral stenosis. Tricuspid Valve: The tricuspid valve leaflets are normal. There is trace tricuspid regurgitation. Unable to estimate the right ventricular systolic pressure. There is no tricuspid stenosis. Pulmonic Valve: The pulmonic valve appears normal. There is no evidence of pulmonic regurgitation. There is no pulmonic stenosis. Pericardium: There is no significant pericardial effusion. Aorta: There is no dilatation of the ascending aorta. There is no dilatation of the aortic arch. The aortic root is normal in size. Pulmonary Artery: The main pulmonary artery is not well visualized. Venous: The inferior vena cava appears normal in size. There is a greater than 50% respiratory change in the inferior vena cava dimension. Conclusions The left ventricular chamber size is normal. Mild to moderate concentric left ventricular hypertrophy is observed. There is normal left ventricular systolic function with severe hypokinesis in a distal wrap around LAD territory The estimated ejection fraction is 60-65%. The left atrium is mildly dilated. The right ventricular chamber size and systolic function are within normal limits. No significant valvular abnormalities noted. Compared to prior study from 12/2017, no clinically significant changes noted Measurements Name Value Normal Range RVIDd (AP) 2D 3.3 cm (0.9 - 2.6) RVDdMajor (2D) 4 cm (2.2 - 4.4) RVAW (2D) 1 cm (0.2 - 0.5) RAd ISD 4CH 4.6 cm (3.4 - 4.9) RA (A4C)W 4.2 cm (2.9 - 4.6) IVSd (2D) 1.3 cm (0.6 - 1) LVPWd (2D) 1.3 cm (0.6 - 1) LVIDd (2D) 4.6 cm (3.6 - 5.4) LVIDs (2D) 3.6 cm - LV FS (2D) 22 % (25 - 45) Aortic Annulus 2 cm (1.4 - 2.6) Ao root diameter (2D) 3 cm (2.1 - 3.5) Ascending Ao 3.4 cm (2.1 - 3.4) Aortic arch 2.1 cm (1.8 - 3.4) LA dimension (AP) 2D 4 cm (2.3 - 3.8) LAd ISD 4CH 5.3 cm (2.9 - 5.3) LA ISD 4CH W 4.6 cm (2.5 - 4.5) Name Value Normal Range LA ESV BP (A/L) index 36 ml/m2 - Name Value Normal Range MV E-wave Vmax 0.8 m/sec - MV deceleration time 246 msec - MV A-wave Vmax 1.1 m/sec - MV E:A ratio 0.7 ratio - LV septal e' Vmax 0.05 m/sec - LV lateral e' Vmax 0.04 m/sec - LV E:e' septal ratio 16 ratio - LV E:e' lateral ratio 20 ratio - Name Value Normal Range AV Vmax 1.2 m/sec - AV VTI 27 cm - AV peak gradient 6 mmHg - AV mean gradient 4 mmHg - LVOT Vmax 1 m/sec - LVOT VTI 20 cm - LVOT peak gradient 4 mmHg - LVOT mean gradient 2 mmHg - VALENTÍN Vmax 0.8 m/sec - Name Value Normal Range IVC diameter 1.8 cm - Name Value Normal Range PV Vmax 0.8 m/sec - PV peak gradient 3 mmHg - Wallmotion BAS Not Seen BA Not Seen BAL Not Seen MIGUEL Not Seen BI Not Seen BIS Not Seen MAS Not Seen MA Not Seen MAL Not Seen MIL Not Seen SD Not Seen MIS Not Seen Hypokinetic AA Hypokinetic AL Not Seen AI Hypokinetic APEX Hypokinetic
[2018-12-11] MEDS: Lisinopril TAB* 10 MG PO SCH (08:47)
[2018-12-11] MEDS: Aspirin 81 mg CHEW TAB* 81 MG TAB.CHEW PO SCH (08:48)
[2018-12-11] MEDS ORDERED: Clopidogrel TAB* 75 MG PO SCH (09:00)
[2018-12-11] MEDS ORDERED: Atenolol TAB* 50 MG PO SCH (09:00)
[2018-12-11 11:33] VITALS: BP 147/81
--- NOTE | 2018-12-11 21:25 | DS ---
CC: Dr. Alexandro Campbell.* DISCHARGE SUMMARY: DATE OF ADMISSION: 12/09/18 DATE OF DISCHARGE: 12/11/18 PRIMARY CARE PHYSICIAN: None. NURSE'S ASSISTANT: Dr. Alexandro Campbell. DIAGNOSES: 1. Anterior wall ST elevation myocardial infraction. 2. History of prior anterior wall myocardial infraction, treated with LAD stenting. 3. Hypertension. 4. Hyperlipidemia. 5. Tobacco use. 6. Medication noncompliance in part due to inability to pay for medications. PROCEDURES: 1. Cardiac cath, radial approach, angioplasty and IVUS, proximal LAD postdilated with 3.25 x 20 NC balloon with resolution of intra-stent thrombus. 2. Echocardiography. CONDITION ON DISCHARGE: Stable. DISCHARGE MEDICATIONS: 1. Aspirin 81 mg daily. 2. Atenolol 50 mg daily. 3. Lipitor 80 mg daily. 4. Brilinta 90 mg b.i.d. until she can obtain Plavix 75 mg daily after a 600 mg loading dose. 5. Lisinopril 20 mg b.i.d. 6. Nitroglycerin 0.4 sublingual p.r.n. DISCHARGE INSTRUCTIONS: 1. To avoid strenuous exertion. 2. Followup wound check with Dr. Coker next week, to call tomorrow to make appointment. Subsequently with Dr. Campbell. 3. Diet: Low fat, low cholesterol. OTHER INSTRUCTIONS: To stop smoking, she does have Chantix at home for help. HISTORY: See H and P. LABS: Her BMP post revascularization remained stable, hemoglobin A1c was in the prediabetic range at 5.8. She does need to establish with a primary care physician. Her troponin peaked at 0.43 with subsequent decrease. Her EKG after spontaneous lysis followed by IVUS and angioplasty showed reversion back to a baseline with T wave inversion in the inferior and anterolateral leads. Echocardiogram reported LVEF similar to prior at 60% to 65% with an anterior apical wall motion abnormality as previously. HOSPITAL COURSE: She presented with acute anterior wall ST elevation infarct about 2 weeks after she stopped taking her meds except for aspirin, on the day of presentation, she did not take her aspirin. She developed her typical symptoms. EKG in the ER showed anterolateral injury current, she was brought to the lab support tech. By the time she had the catheterization, her chest pain had resolved after medical treatment in the ER. Angiography demonstrated a laminar intraluminal filling defect within the proximal LAD stents, presumably thrombus. Her LAD was evaluated with IVUS, she has essentially adjacent separate ostia for the LAD and circumflex. The stent was slightly undersized, but well opposed, there was a localized probable thrombus or tissue prolapse. This was dilated with a 3.25 mm balloon with resolution. There was only 1 area of residual under expansion in spite of high pressure, oversize balloon inflation which was not pursued further. See the IVUS report for further details. Postprocedure, she had no right wrist issues, has not had recurrence of chest pain, heart failure symptoms, or palpitations. She had a very small troponin rise with unchanged LV function, consistent with very small infarct. We spent a lot of time talking about secondary risk factor modification, I changed her beta regan to one that she can get for less money through [place]. She was given 4 bottles of Brilinta samples to use until she can obtain Plavix. I have advised her to come to the office to get more samples if there is any problem with her getting Plavix. She in part in the past has had medication noncompliance because of inability to pay for meds. She received full discharge instructions. [id number]/[facility] #: [id number] MARY KAY
--- NOTE | 2018-12-11 21:50 | CATH ---
ANGIOPLASTY REPORT: DATE OF PROCEDURE: 12/09/18 - ROOM #451 HARNESS INSTALLER: Dr. Campbell. PRIMARY CARE PHYSICIAN: None. PROCEDURES: Right radial artery access, bilateral selective coronary angiography, IVUS, angioplasty of the LAD, and left heart catheterization. HISTORY: A 48-year-old woman with remote LAD stenting at [place], by history subsequent early restenosis leading to a second stent. One year ago, she presented here with an ST-elevation infarct with probable in-stent thrombus, had revascularization by Dr. Coker with deployment of a 3 x 16 Synergy drug- eluting stent of the proximal LAD postdilated to 3 mm with an NC balloon. LV gram showed apical dyskinesis with EF of 55%. Subsequently, she has been pain-free, but has been medically noncompliant in part because of inability to pay for medications. She stopped all of her meds except for aspirin about 2 weeks ago, and on the day of presentation, did not take aspirin 81. She developed severe chest pain. In the ER had evidence of an anterior ST-elevation infarct and underwent catheterization. PROCEDURE ACCESS: Right radial artery sheath 6F slender. MEDICATIONS: 1. Subcu lidocaine. 2. IV Versed. 3. IV fentanyl. 4. Nitroglycerin 300 mcg. 5. Verapamil 3 mg IA. 6. Heparin total of 13,000 units. 7. Brilinta 180 mg p.o. loading dose. 8. She received aspirin pre-medical lab specialist. DIAGNOSTIC CATHETERS: 5F TIG4. HEMODYNAMICS: Initial AO 147/87, LV 132/1-8, no aortic valve gradient on pullback. ANGIOGRAPHY: Left main. It is absent, she has separate ostia for the circumflex and LAD. LAD. The LAD is large. The proximal segment is previously stented. There mild taper at the ostium. The stent is patent. There is very mild intimal hyperplasia in the distal end of the stented segment. The mid stent has an intraluminal laminal filling defect, probably a thrombus. Her LAD apex was previously occluded. It is not recanalized on the initial images, but on subsequent images, there is evidence of distal thrombus, presumably she spontaneously reperfused as when she arrived in the medical lab specialist her chest pain had resolved. Circumflex. The circumflex has a separate ostium, is large, not dominant, supplies 2 large posterolaterals. The circumflex has no significant stenosis. RCA. The RCA is dominant, large. There is mid irregularity. At the acute margin, there is an unchanged 40% to 50% stenosis. The PDA is [id number] , followed by several small posterolaterals. After angiography, she underwent IVUS evaluation, which was done to evaluate the cause for in-stent thrombus late. Distal reference diameter was 2.6 x 2.8 mm with an area of 5.86. Intermediate diameter was 4.24 x 4.56. Her LAD has diffuse atherosclerosis mostly fibrotic with occasional areas of calcium. In- stent MLD was 2.46 x 2.75 for an area of 5.39, due to under-expansion as she had postdilatation to a high pressure with a 3-mm balloon 1 year ago. After high-pressure postdilatation with a 3.25 mm balloon, MLD was increased to 5.62 sq.mm, 2.38 x 3.07 mm. The LAD ostium was 2.23 x 2.58 mm for an area of 4.55, not significant in terms of stenosis. Post angioplasty, the intraluminal filling defect is absent. The entirety of the stented segment was dilated with the 3.25 mm balloon to 16 atmospheres within the distal stent, and 20 atmospheres in the proximal remainder of the stented segment. Post angioplasty angiography showed resolution of the intraluminal filling defect, ROSALINA 3 flow, no dissection. CONCLUSION: 1. Late in-stent thrombosis with spontaneous reperfusion, residual laminar thrombus resolved with high-pressure somewhat oversized balloon angioplasty. 2. Unchanged moderate right coronary artery stenosis. 3. Absent left main by angiography and IVUS. On IVUS, her left main is absent. She has essentially an hourglass configuration with separate ostia for the LAD and circumflex, which are adjacent. 4. Normal left-sided hemodynamics. 5. Medication noncompliance, hopefully will improve with switching her to more affordable medications as well as intensive discussion of the importance of medical management of coronary artery disease. We will also encourage her to stop smoking. [id number]/[facility] #: [id number] MARY KAY
== END 2018-12-11 14:19 | disposition home or self-care (01) | DRG 175 ==
LOC: ED 14:39 → ICU 16:51 → MEDTELE 12-10 12:58
PROVIDERS: ADMIT Internal Medicine Cardiovascular Disease; ATTEND Internal Medicine Cardiovascular Disease
PROC: B241ZZ3 Ultrasonography of Multiple Coronary Arteries, Intravascular (ICD-10-PCS; 2018-12-09)
PROC: B2111ZZ Fluoroscopy of Multiple Coronary Arteries using Low Osmolar Contrast (ICD-10-PCS; 2018-12-09)
PROC: 4A023N7 Measurement of Cardiac Sampling and Pressure, Left Heart, Percutaneous Approach (ICD-10-PCS; 2018-12-09)
PROC: 02703ZZ Dilation of Coronary Artery, One Artery, Percutaneous Approach (ICD-10-PCS; principal; 2018-12-09 15:00)
DX: T82.867A Thrombosis due to cardiac prosthetic devices, implants and grafts, initial encounter (principal); I21.09 ST elevation (STEMI) myocardial infarction involving other coronary artery of anterior wall; I10 Essential (primary) hypertension; M19.90 Unspecified osteoarthritis, unspecified site; E78.5 Hyperlipidemia, unspecified; F17.200 Nicotine dependence, unspecified, uncomplicated; I25.10 Atherosclerotic heart disease of native coronary artery without angina pectoris; Y83.1 Surgical operation with implant of artificial internal device as the cause of abnormal reaction of the patient, or of later complication, without mention of misadventure at the time of the procedure; G43.809 Other migraine, not intractable, without status migrainosus; I25.2 Old myocardial infarction; Z72.89 Other problems related to lifestyle; Z83.3 Family history of diabetes mellitus; Z95.5 Presence of coronary angioplasty implant and graft; Z91.14 Patient's other noncompliance with medication regimen; Z79.02 Long term (current) use of antithrombotics/antiplatelets; Z79.82 Long term (current) use of aspirin; Y92.9 Unspecified place or not applicable
CPT/HCPCS: 36415; 80048; 80053; 80061; 82550; 82553; 83036; 83605; 83721; 83880; 84484; 85025; 85347; 85610; 85730; 87641; 93005; 93306; 99156; 99157; 99283; A9270-GY; C1725; C1769; C1887; J1644; J2250; J3010; J3480

== ENCOUNTER 2019-04-28 10:03 | Observation (INO) | payer OTHER ==
[2019-04-28] MEDS ORDERED: Heparin(*) 1000 UNIT/ML 10 ML VIAL CATH LAB IV ONE (12:17)
[2019-04-28] MEDS ORDERED: fentaNYL* 50 MCG/ML 2 ML VIAL (100 MCG VIAL) ONE ×2 (12:17→14:03)
[2019-04-28] MEDS ORDERED: Midazolam* 1 MG/ML 5 ML VIAL (5 MG) ONE (12:17)
[2019-04-28] MEDS ORDERED: VERAPAMIL 2.5 MG/ML 2 ML VIAL ** 5 mg/2 ml ONE (12:17)
[2019-04-28] MEDS ORDERED: Heparin 2 UNITS/ML IVPREMIX* 2,000 ML IV ONE (12:18)
[2019-04-28] MEDS ORDERED: Lidocaine 1% INJ* 10 MG/ML 30 ML SDV ONE (12:18)
[2019-04-28] MEDS ORDERED: nitroGLYCERIN DRIP* 25,000 MCG/250 ML BTL ONE (12:18)
[2019-04-28] MEDS ORDERED: Iodixanol 320 (CONTRAST) 100 ML SDV ONE (12:18)
[2019-04-28] MEDS ORDERED: Nitroglycerin TAB 0.4 MG* 0.4 MG TAB SL PRN ×2 (15:07→15:12)
[2019-04-28] MEDS ORDERED: NS 0.9% 1000 ML** 1,000 ML IV SCH (15:15)
[2019-04-28] MEDS ORDERED: Acetaminophen TAB* 325 MG PO PRN (15:16)
[2019-04-28] MEDS ORDERED: Atorvastatin* 80 MG TAB PO SCH (17:00)
[2019-04-28] MEDS: Lisinopril TAB* 10 MG PO SCH (19:48)
[2019-04-28] MEDS: Ticagrelor* 90 MG TAB PO SCH (19:48)
[2019-04-29 06:02] LABS: BUN/Creatinine Ratio 17.1 (8-20); Calcium 8.7 mg/dL (8.6-10.3); EGFR African American 97.1 (>60); EGFR Non-African American 80.2 (>60); Potassium 4.1 mmol/L (3.5-5.0)
[2019-04-29] MEDS: Lisinopril TAB* 10 MG PO SCH (08:15)
[2019-04-29] MEDS: Ticagrelor* 90 MG TAB PO SCH (08:15)
[2019-04-29] MEDS ORDERED: Aspirin 81 mg CHEW TAB* 81 MG TAB.CHEW PO SCH (09:00)
[2019-04-29] MEDS ORDERED: Metoprolol Succinate XL TAB* 50 MG PO SCH (09:00)
[2019-04-29 11:10] VITALS: BP 115/67
--- NOTE | 2019-04-29 15:18 | DS ---
CC: Dr. Campbell * DISCHARGE SUMMARY: DATE OF ADMISSION: 04/28/19 DATE OF DISCHARGE: 04/29/19 PRIMARY CARE PHYSICIAN: Unknown. SAFETY GLASS INSTALLER: Dr. Campbell. DISCHARGE DIAGNOSES: 1. Unstable angina. 2. Tobacco use. 3. History of prior myocardial infarction. 4. Hypertension. 5. Hyperlipidemia. CONDITION ON DISCHARGE: Stable. DISPOSITION: To home. FOLLOWUP: Dr. Campbell on 05/08/19 at 4:20 p.m. ACTIVITY: No strenuous exertion for 2 days. WOUND CARE: Shower only for 3 days, do not smoke. DISCHARGE MEDICATIONS: Unchanged, 1. Aspirin 81 mg daily. 2. Lipitor 80 mg daily. 3. Lisinopril 20 mg b.i.d. 4. Toprol XL 50 mg daily. 5. Nitroglycerin 0.4 sublingual p.r.n. 6. Brilinta 90 mg b.i.d. DIET: Low fat, low cholesterol, cardiac. HISTORY: See outpatient H and P. DIAGNOSTIC STUDIES/LAB DATA: Post PCI, BMP remained stable with creatinine of 0.76. EKG postprocedure remained stable with poor R-wave progression V1 through V5 with anterolateral T-wave inversion. HOSPITAL COURSE: She presented for outpatient catheterization for evaluation of unstable angina after LAD IVUS guided angioplasty for in-stent stenosis and thrombus with acute anterior wall ST elevation infarct presentation. Cath via the right radial was uncomplicated, revealed high-grade ostial LAD restenosis of 80% to 90%. This was stented with a 3 x 12 drug eluting stent, postdilated to high pressure, excellent apposition and expansion by IVUS. Postprocedure, there were no complications. She has not had any chest pain, heart failure symptoms, palpitations, right hand issues. Post-procedure, BMP stable. She will continue her usual medical regimen, was again advised to continue efforts to stop smoking. She is stable for discharge. [id number]/[facility] #: [id number] [facility]ITALV[facility]
--- NOTE | 2019-05-04 22:45 | CATH ---
CC: Dr. Campbell * STENT REPORT: DATE OF PROCEDURE: 04/28/19 - ROOM #ICU-03 BROADCAST SUPERVISOR: Dr. Campbell PROCEDURES: 1. Right radial artery access with ultrasound guidance. 2. Diagnostic coronary angiography. 3. Ostial left anterior descending stent placement 3 x 12 Synergy drug-eluting stent, postdilated with 3.25 x 12. 4. IVUS evaluation to ensure expansion and apposition. HISTORY: A 49-year-old woman with remote stenting in 2008 of the proximal LAD, early restenosis treated with a 3 x 18, 3 x 8, 3 x 12 drug-eluting stent. In 3 x 18, she had proximal LAD 75% stenosis with thrombus treated with 3 x 16 drug- eluting inside the prior stents. On 12/10/18, she had proximal LAD thrombus with an anterior wall ST elevation infarct presentation, had 50% RCA stenosis. She had IVUS-guided angioplasty of the LAD stented segment, which was upsized. She now presents with unstable angina and stress imaging with an anteroapical scar with desean-infarct ischemia. PROCEDURE ACCESS: Right radial artery with ultrasound guidance sheath 6F slender. MEDICATIONS: 1. Subcu lidocaine. 2. IV Versed. 3. IV fentanyl. 4. Heparin 3000 units. 5. Nitroglycerin 300 mcg. 6. Verapamil 3 mg IA. 7. Additional heparin 6000 units. GUIDING CATHETERS: 5F Ikari left 3.5, wire 14 BMW. The ostial LAD stenosis was predilated with a 3 x 12 balloon, after which a 3 x 12 Synergy drug-eluting stent was deployed at 11 atmospheres for 15 seconds, postdilated with a 3 mm NC balloon to 26 atmospheres. Because of still undersizing a 3.25 x 12 NC balloon was inserted and inflated to 16 and then 24 atmospheres for 30 seconds. IVUS was then performed to evaluate apposition and expansion. The 3.25 x 12 NC balloon was reintroduced and inflated 28 atmospheres of 60 seconds followed by repeat angiography. HEMODYNAMICS: Initial AO 134/92, final BP 156/99. ANGIOGRAPHY: Left main: She has no left main. LAD: The LAD is moderate, the previously placed overlapping stents are readily visible, there is no significant in-stent restenosis except at the ostium of the LAD. Distal flow is ROSALINA 3 with filling of relatively small first diagonal , which is jailed, has 30% to 40% ostial stenosis. There is mild intimal hyperplasia in the distal half of the stent and segment. The mid LAD supplies a moderate diagonal. The ostium of the LAD has an eccentric 80% to 90% stenosis. Circumflex: The circumflex is large, not dominant, consistent with single large bifurcated marginal that supplied to entire obtuse margin, the marginal has scattered mild luminal irregularity. RCA: The RCA is large, dominant with a 40% to 50% stenosis or less at the acute margin, the PDA is moderate followed by number of smaller posterolaterals. After IVUS-guided ostial LAD, a drug-eluting stent placement followed by high pressure postdilatation. The ostium is widely patent without residual stenosis , flow is antegrade 3. There is no dissection. There is no compromise of the circumflex. Postprocedure IVUS demonstrated normal apposition, and generally uniform expansion with 3 x 3 mm MLD at the ostium. There is mild intimal hyperplasia in the more distal segment of the numerous overlapping stents without significant stenosis. There is no encroachment on the circumflex ostium. The minimal luminal diameters within the distal segment is approximately 2.75 x 2.75. CONCLUSION: 1. High-grade ostial LAD in-stent restenosis in a patient without left main, excellent angiographic result with additional drug-eluting stent placement, postdilated high pressure with somewhat oversized balloon 3.25 mm with excellent expansion and apposition. 2. Successful right radial artery access. [id number]/[facility] #: [id number] MTDD
== END 2019-04-29 12:30 | disposition home or self-care (01) ==
LOC: CHICATH 10:03 → ICU 15:16
PROVIDERS: ADMIT Internal Medicine Cardiovascular Disease; ATTEND Internal Medicine Cardiovascular Disease
DX: I25.119 Atherosclerotic heart disease of native coronary artery with unspecified angina pectoris (principal); I10 Essential (primary) hypertension; F17.210 Nicotine dependence, cigarettes, uncomplicated; I25.2 Old myocardial infarction; E78.5 Hyperlipidemia, unspecified; Z79.82 Long term (current) use of aspirin; Z79.899 Other long term (current) drug therapy; R06.00 Dyspnea, unspecified; R07.9 Chest pain, unspecified; R94.31 Abnormal electrocardiogram [ECG] [EKG]
CPT/HCPCS: 36415; 80048; 85347; 87641; 93005; 93458; 96360; 96361; 99156; 99157; A9270-GY; C1725; C1769; C1876; C9600-LD; G0378; J1644; J2250; J3010

== ENCOUNTER 2022-10-01 02:29 | Inpatient (IN) ==
[2022-10-01] MEDS ORDERED: NS 0.9% 1000 ml BAG 1,000 ML IV ONE (02:48)
[2022-10-01 03:24] LABS: ABS Basophils 0.1 10^3/ul (0-0.2); ABS Lymphocytes 0.9 10^3/ul (1.0-4.8); ABS Monocytes 0.5 10^3/ul (0-0.8); ABS Neutrophils 18.1 10^3/ul (1.5-7.7); Eosinophil % 0.1 %; Hematocrit 42 % (35-47); Hemoglobin 13.1 g/dL (12.0-16.0); Lymphocyte % 4.7 %; Mean Corpuscular HGB Conc 31 g/dL (31-36); Mean Corpuscular Hemoglobin 26 pg (27-31); Mean Corpuscular Volume 83 fL (80-97); Mean Platelet Volume 7.8 fL (7.4-10.4); Platelet Count 370 10^3/uL (150-450); Red Blood Count 5.01 10^6 /uL (3.70-4.87); Red Cell Distribution Width 15 % (10-15); White Blood Count 19.6 10^3/uL (3.5-10.8)
[2022-10-01 04:08] LABS: Calcium 9.5 mg/dL (8.6-10.3); Creatinine, Serum 1.41 mg/dL (0.51-0.95); eGFR CKD-EPI 44.3 (>60)
[2022-10-01 04:10] LABS: Potassium 5.2 mmol/L (3.5-5.0)
[2022-10-01] MEDS ORDERED: Iodixanol (CONTRAST) 320 MG/ML 100 ML SDV IV ONE (04:10)
[2022-10-01] MEDS ORDERED: Vancomycin 1,500 MG in NS 0.9% 250 ml 250 ML IVPB ONE (08:37)
[2022-10-01] MEDS ORDERED: NS 0.9% IV ONE (08:37)
[2022-10-01] MEDS ORDERED: TAZOBAC IV ONE (08:37)
[2022-10-01] MEDS ORDERED: PIPERACILLIN IV ONE (08:37)
[2022-10-01] MEDS ORDERED: Nicotine GUM 2MG FRUIT FLAVOR PO PRN (09:29)
[2022-10-01 09:50] LABS: Magnesium 1.8 mg/dL (1.9-2.7)
[2022-10-01] MEDS ORDERED: Magnesium Sulfate 2 gm BAG 2 GM/50 ML BAG IVPB ONE (09:57)
[2022-10-01] MEDS ORDERED: Acetaminophen IV 1 GM/100ML 1,000 MG/100 ML BAG IV PRN (10:16)
[2022-10-01 10:23] LABS: C Reactive Protein 53.69 mg/L (<8.01)
[2022-10-01] MEDS ORDERED: Vancomycin per Pharmacy 1 EA NOTE FOLLOW UP SCH (11:00)
[2022-10-01] MEDS ORDERED: Lactated Ringers 1000 ml BAG 1,000 ML IV SCH ×2 (11:00→14:07)
[2022-10-01] MEDS ORDERED: LORazepam 2 mg VIAL 1 ml IV PUSH PRN (11:04)
[2022-10-01] MEDS ORDERED: Lorazepam PYXIS KEY PRN (11:04)
[2022-10-01] MEDS ORDERED: cefTRIAXone 2 gm/50 mL D5W 2 GM/50 ML BAG IV SCH (11:45)
[2022-10-01] MEDS: cefTRIAXone 2 GM ADDV.VIAL 2 GM in NS 0.9% 100 ml BAG 100 ML IV SCH (13:08)
[2022-10-01] MEDS: Enoxaparin 40 MG/0.4 ML SYR SUBCUT SCH (13:08)
[2022-10-01] MEDS ORDERED: Magnesium Sulfate 2 GM IV (Premix) IVPB ONE (13:15)
[2022-10-01] MEDS ORDERED: Cefepime 2 GM in Dextrose 2 GM/50 ML BAG IV SCH (15:00)
[2022-10-01 19:05] LABS: Calcium 8.4 mg/dL (8.6-10.3)
[2022-10-01 19:11] LABS: Creatinine, Serum 1.35 mg/dL (0.51-0.95); eGFR CKD-EPI 46.7 (>60)
[2022-10-01] MEDS: CMCS:Ticagrelor 60 mg TAB (NF) PO SCH (20:14)
[2022-10-02 06:16] LABS: Hematocrit 33 % (35-47); Hemoglobin 10.6 g/dL (12.0-16.0); Mean Corpuscular HGB Conc 32 g/dL (31-36); Mean Corpuscular Hemoglobin 27 pg (27-31); Mean Corpuscular Volume 83 fL (80-97); Red Blood Count 3.96 10^6 /uL (3.70-4.87); Red Cell Distribution Width 15 % (10-15); White Blood Count 12.4 10^3/uL (3.5-10.8)
[2022-10-02 06:17] LABS: ABS Lymphocytes 1.4 10^3/ul (1.0-4.8); ABS Monocytes 0.4 10^3/ul (0-0.8); ABS Neutrophils 10.5 10^3/ul (1.5-7.7); Eosinophil % 0.2 %; Lymphocyte % 11.2 %
[2022-10-02 06:19] LABS: Calcium 8.3 mg/dL (8.6-10.3); Magnesium 2.2 mg/dL (1.9-2.7); Potassium 4.1 mmol/L (3.5-5.0)
[2022-10-02 06:25] LABS: Creatinine, Serum 1.38 mg/dL (0.51-0.95); eGFR CKD-EPI 45.5 (>60)
[2022-10-02 06:49] LABS: Mean Platelet Volume 8.4 fL (7.4-10.4); Platelet Count 191 10^3/uL (150-450)
[2022-10-02] MEDS: CMCS:Ticagrelor 60 mg TAB (NF) PO SCH ×2 (07:39→21:13)
[2022-10-02] MEDS: Nicotine PATCH 14 MG/24 HR PATCH TRANSDERM SCH (07:39)
[2022-10-02] MEDS: Vancomycin 1,250 MG in NS 0.9% 250 ml 250 ML IVPB SCH (09:00)
[2022-10-02] MEDS: Enoxaparin 40 MG/0.4 ML SYR SUBCUT SCH (10:43)
[2022-10-02] MEDS: Morphine 2 MG/ML SYRINGE IV PRN ×2 (10:45→18:24)
[2022-10-02] MEDS: cefTRIAXone 2 GM ADDV.VIAL 2 GM in NS 0.9% 100 ml BAG 100 ML IV SCH (13:36)
[2022-10-02] MEDS ORDERED: LORazepam 2 mg VIAL 1 ml IV PUSH ONE (15:09)
[2022-10-02] MEDS ORDERED: Lorazepam PYXIS KEY PRN (15:09)
[2022-10-02] MEDS ORDERED: Naloxone Nasal Spray 4 MG/0.1 ML NASAL.SPR INTRANASAL PRN (15:26)
[2022-10-02] MEDS: NS 0.9% 1000 ml BAG 1,000 ML IV SCH (17:54)
[2022-10-02] MEDS ORDERED: Gadoteridol (CONTRAST) 279.3 MG/ML 10 ML IV ONE (20:45)
[2022-10-03 03:02] LABS: Urine Appearance Cloudy; Urine Bilirubin Negative (Negative); Urine Blood Negative (Negative); Urine Color Yellow; Urine Glucose Negative (Negative); Urine Ketones Negative (Negative); Urine Nitrite Negative (Negative); Urine Protein 1+(30 mg/dL) (Negative); Urine Specific Gravity 1.027 (1.002-1.030); Urine Urobilinogen Negative (Negative)
[2022-10-03 03:16] LABS: Urine Creatinine Concentration 119.5 mg/dL
[2022-10-03 03:42] LABS: Urine Bacteria Absent (Absent); Urine Red Blood Cell Absent (Absent); Urine Squamous Epithelial Cell Present (Absent); Urine White Blood Cell Trace(0-5/hpf) (Absent)
[2022-10-03 06:14] LABS: Calcium 8.3 mg/dL (8.6-10.3); Creatinine, Serum 1.09 mg/dL (0.51-0.95); Potassium 3.8 mmol/L (3.5-5.0); eGFR CKD-EPI 60.4 (>60)
[2022-10-03] MEDS: NS 0.9% 1000 ml BAG 1,000 ML IV SCH (07:19)
[2022-10-03] MEDS: Nicotine PATCH 14 MG/24 HR PATCH TRANSDERM SCH (08:51)
[2022-10-03] MEDS: Enoxaparin 40 MG/0.4 ML SYR SUBCUT SCH (08:52)
[2022-10-03] MEDS: CMCS:Ticagrelor 60 mg TAB (NF) PO SCH ×2 (08:59→20:16)
[2022-10-03] MEDS: Vancomycin 1,250 MG in NS 0.9% 250 ml 250 ML IVPB SCH (09:00)
[2022-10-03] MEDS: cefTRIAXone 2 GM ADDV.VIAL 2 GM in NS 0.9% 100 ml BAG 100 ML IV SCH (13:14)
[2022-10-03] MEDS: Morphine 2 MG/ML SYRINGE IV PRN (15:51)
[2022-10-04] MEDS ORDERED: Vancomycin Trough Check NOTE FOLLOW UP ONE (08:30)
[2022-10-04] MEDS: Enoxaparin 40 MG/0.4 ML SYR SUBCUT SCH (08:44)
[2022-10-04] MEDS: CMCS:Ticagrelor 60 mg TAB (NF) PO SCH ×2 (08:44→20:40)
[2022-10-04] MEDS: Nicotine PATCH 14 MG/24 HR PATCH TRANSDERM SCH (08:44)
[2022-10-04] MEDS: Morphine 2 MG/ML SYRINGE IV PRN (09:16)
[2022-10-04 09:18] LABS: ABS Eosinophils 0.2 10^3/ul (0-0.6); ABS Lymphocytes 0.8 10^3/ul (1.0-4.8); ABS Monocytes 0.4 10^3/ul (0-0.8); ABS Neutrophils 3.7 10^3/ul (1.5-7.7); Eosinophil % 3.9 %; Hematocrit 33 % (35-47); Hemoglobin 10.6 g/dL (12.0-16.0); Lymphocyte % 15.1 %; Mean Corpuscular HGB Conc 32 g/dL (31-36); Mean Corpuscular Hemoglobin 26 pg (27-31); Mean Corpuscular Volume 82 fL (80-97); Mean Platelet Volume 8.6 fL (7.4-10.4); Nucleated Red Blood Cells % 0.1; Platelet Count 255 10^3/uL (150-450); Red Blood Count 4.04 10^6 /uL (3.70-4.87); Red Cell Distribution Width 15 % (10-15); White Blood Count 5.1 10^3/uL (3.5-10.8)
[2022-10-04 10:00] LABS: Calcium 8.7 mg/dL (8.6-10.3); Creatinine, Serum 0.87 mg/dL (0.51-0.95); Potassium 4.1 mmol/L (3.5-5.0); Vancomycin Trough 8.3 mcg/mL; eGFR CKD-EPI 79.1 (>60)
[2022-10-04] MEDS: Vancomycin 1,250 MG in NS 0.9% 250 ml 250 ML IVPB SCH (10:18)
[2022-10-04] MEDS: cefTRIAXone 2 GM ADDV.VIAL 2 GM in NS 0.9% 100 ml BAG 100 ML IV SCH (13:15)
[2022-10-04] MEDS: Vancomycin 1000 MG in NS 0.9% 250 ML IVPB SCH (21:35)
[2022-10-05] MEDS: CMCS:Ticagrelor 60 mg TAB (NF) PO SCH (08:04)
[2022-10-05 08:51] LABS: ABS Eosinophils 0.3 10^3/ul (0-0.6); ABS Lymphocytes 1.1 10^3/ul (1.0-4.8); ABS Monocytes 0.5 10^3/ul (0-0.8); ABS Neutrophils 3.3 10^3/ul (1.5-7.7); Eosinophil % 5.1 %; Hematocrit 36 % (35-47); Hemoglobin 11.3 g/dL (12.0-16.0); Lymphocyte % 21.3 %; Mean Corpuscular HGB Conc 32 g/dL (31-36); Mean Corpuscular Hemoglobin 27 pg (27-31); Mean Corpuscular Volume 84 fL (80-97); Mean Platelet Volume 8.4 fL (7.4-10.4); Nucleated Red Blood Cells % 0.2; Platelet Count 260 10^3/uL (150-450); Red Blood Count 4.25 10^6 /uL (3.70-4.87); Red Cell Distribution Width 15 % (10-15); White Blood Count 5.2 10^3/uL (3.5-10.8)
[2022-10-05 09:09] LABS: CO2 Carbon Dioxide 21 mmol/L (22-32); Calcium 8.6 mg/dL (8.6-10.3); Chloride 107 mmol/L (101-111); Sodium 137 mmol/L (135-145)
[2022-10-05 09:14] LABS: Blood Urea Nitrogen 16 mg/dL (6-24); Creatinine, Serum 0.87 mg/dL (0.51-0.95); Glucose 97 mg/dL (70-100); eGFR CKD-EPI 79.1 (>60)
[2022-10-05 09:38] LABS: Anion Gap 9 mmol/L (2-11)
[2022-10-05] MEDS: Nicotine PATCH 14 MG/24 HR PATCH TRANSDERM SCH (09:48)
[2022-10-05] MEDS: Vancomycin 1000 MG in NS 0.9% 250 ML IVPB SCH (10:20)
[2022-10-05] MEDS: Enoxaparin 40 MG/0.4 ML SYR SUBCUT SCH (10:21)
[2022-10-05 11:17] VITALS: BP 144/84
[2022-10-06] MEDS ORDERED: Vancomycin Trough Check NOTE FOLLOW UP ONE (09:30)
== END 2022-10-05 15:15 | disposition home or self-care (01) | DRG 720 ==
LOC: EDHOLD 02:29 → ED 02:29 → EDHOLD 12:02 → MED 12:26 → SUATTDRO 10-02 15:34
PROVIDERS: ADMIT Internal Medicine; ATTEND Internal Medicine